=== PATIENT | born 1995 | race Caucasian/White ===

== ENCOUNTER 2023-10-14 08:14 | Inpatient (IN) ==
[2023-10-14] MEDS ORDERED: Al Hydrox/Mg Hydrox/Simet LIQ 30 ML UDC PO PRN (08:24)
[2023-10-14] MEDS: Vitamin THERAPEUTIC TAB PO SCH (17:27)
[2023-10-15] MEDS: Vitamin THERAPEUTIC TAB PO SCH (08:45)
[2023-10-15 08:48] VITALS: BP 130/82
== END 2023-10-15 14:30 | disposition home or self-care (01) | DRG 755 ==
LOC: BSU 10:21
PROVIDERS: ADMIT Psychiatry & Neurology Psychiatry; ATTEND Psychiatry & Neurology Psychiatry